=== PATIENT | female | born 1940 | race Caucasian/White ===

== ENCOUNTER 2020-07-31 07:30 | Inpatient (IN) | payer OTHER, SELFPAY ==
[2020-07-31] VITALS (23 sets, daily range): BP systolic 134–155; BP diastolic 62–82; PULSE 77–122; RESP 16–39; TEMP 36.1–37; O2SAT 92–100; BMI 34.4
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
[2020-07-31 08:11] LABS: Add Manual Diff / Slide Review NO; Basophils Absolute Auto 100 /uL (0-100); Eosinophils Absolute Auto 100 /uL (0-450); Eosinophils Percent Auto 1.1 % (2-4); Hematocrit 39.7 % (36-46); Hemoglobin 13.2 g/dL (12.0-16.0); Lymphocytes Absolute Auto 1200 /uL (1100-4500); Lymphocytes Percent Auto 17.6 % (25-40); Mean Corpuscular HGB Conc 33.2 % (30-36); Mean Corpuscular Hemoglobin 30.3 PG (26-34); Mean Corpuscular Volume 91.5 fL (80-100); Monocytes Absolute Auto 600 /uL (0-900); Monocytes Percent Auto 9.4 % (3-14); Neutrophils Absolute Auto 4700 /uL (1500-7000); Neutrophils Percent Auto 70.9 % (50-75); Platelet Count 150 X10^3/uL (150-400); Red Blood Cell Count 4.34 X10^6/uL (4.0-5.2); White Blood Cell Count 6.6 X10^3/uL (4.5-11.0)
[2020-07-31 08:17] LABS: INR 3.5 (0.9-1.3); Prothrombin Time 39.5 SECONDS (10.1-12.7)
[2020-07-31 08:20] LABS: PTT Partial Thromboplastin Tim 45 SECONDS (26.4-36.2)
[2020-07-31 08:22] LABS: Alanine Aminotransferase 26 IU/L (<35); Albumin Globulin Ratio 1.2 (1.0-2.8); Alkaline Phosphatase 93 U/L (38-126); Aspartate Aminotransferase 40 IU/L (14-36); BUN Creatinine Ratio 26.8 (6-22); Bilirubin Total 0.8 mg/dL (0.2-1.3); Blood Urea Nitrogen 26 mg/dL (7-17); Carbon Dioxide 31 mmol/L (22-32); Chloride 103 mmol/L (98-107); Estimated Glomerular Filt Rate 55.7 mL/min (>60); Globulin 3.3 g/dL (1.7-4.1); Glucose 135 mg/dL (80-110); HEMOLYSIS < 15 (0-50); Lipase 166 U/L (23-300); Potassium 3.3 mmol/L (3.4-5.1); Sodium 141 mmol/L (137-145); Total Protein 7.3 g/dL (6.3-8.2)
[2020-07-31 08:33] LABS: Troponin I < 0.012 ng/mL (0.01-0.034)
[2020-07-31] MEDS: SODIUM CHLORIDE 0.9% 1,000 ML 500 ML IV (09:30)
[2020-07-31 10:51] LABS: COVID19 -Nasal RAPID Negative (Negative)
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
[2020-07-31] MEDS: ACETAMINOPHEN 325 MG TABLET 650 MG PO ×2 (14:06→20:08)
--- NOTE | 2020-07-31 14:20 | PC.ADMIT ---
[id number] Admission Note: The patient,Cindy Hansen,79 y/o, was given written information regarding hospital policies, unit procedures and contact persons. Patient's smoking status: Former smoker. Vital Signs - 8 hr 07/31/20 07:40 07/31/20 07:45 07/31/20 08:00 Temperature 98.6 F Pulse Rate 97 H 101 H 95 H Respiratory Rate 30 H 37 H 39 H Blood Pressure 135/82 Pulse Oximetry 94 95 95 07/31/20 08:15 07/31/20 08:38 07/31/20 08:45 Temperature Pulse Rate 108 H 94 H 89 Respiratory Rate 24 30 H Blood Pressure 139/68 Pulse Oximetry 95 96 96 07/31/20 09:00 07/31/20 09:15 07/31/20 09:30 Temperature Pulse Rate 91 H 92 H 89 Respiratory Rate 29 H 30 H Blood Pressure 134/63 Pulse Oximetry 92 92 96 07/31/20 09:45 07/31/20 10:00 07/31/20 10:15 Temperature Pulse Rate 94 H 112 H 84 Respiratory Rate 26 H 31 H 33 H Blood Pressure Pulse Oximetry 99 96 99 07/31/20 10:30 07/31/20 10:45 07/31/20 11:00 Temperature Pulse Rate 86 85 81 Respiratory Rate 28 H 33 H 32 H Blood Pressure Pulse Oximetry 99 100 99 07/31/20 11:15 07/31/20 11:30 07/31/20 11:45 Temperature Pulse Rate 84 79 86 Respiratory Rate 31 H 32 H 24 Blood Pressure Pulse Oximetry 97 99 99 07/31/20 13:00 Temperature 97.8 F Pulse Rate 77 Respiratory Rate 16 Blood Pressure 155/70 H Pulse Oximetry 95 Rec'd pt from ED via w/c on RA at 1215. Pt stood and walked to bed with steady gait and no assistive device. AO x4. VSS. Reports 5/10 generalized pain mostly around the bruises. Oriented to environment, room, routine, fall risk, plan of care, pain scale, pain mgmt techniques. Instructed pt to use call light and wait for assistance before getting OOB. Provided IS to pt who requested pain less than 5 prior to using IS. She is able to provided teach back on use of IS. Provided repositioning and ice pack to help with pain reduction. Call light in easy reach.
[2020-07-31] MEDS: IBUPROFEN 600 MG TABLET PO (17:56)
[2020-07-31] MEDS: LEVALBUTEROL HFA 200 PUFF INH INH (18:08)
--- NOTE | 2020-07-31 18:13 | PC.NURSE ---
Patient sitting up in bed part of the shift. Up walking hallway couple of times this shift with daughter. Pain controlled well at the beginning of the shift with Tylenol. After 2nd walk abd pain started increasing, gave Ibuprofen at this time. Patient has been A&O, calm and cooperative. Patient resting in bed at this time.
[2020-07-31] MEDS: MONTELUKAST 10 MG TABLET PO (20:08)
[2020-07-31] MEDS: PANTOPRAZOLE 40 MG TABLET PO (20:08)
[2020-07-31] MEDS: GABAPENTIN 300 MG CAPSULE PO (20:08)
[2020-07-31] MEDS: LOVASTATIN 20 MG TABLET PO (20:08)
[2020-07-31] MEDS: FUROSEMIDE 40 MG TABLET 80 MG PO (20:09)
[2020-07-31] MEDS: DOCUSATE 100 MG CAPSULE PO (20:09)
[2020-07-31] MEDS: METOPROLOL IR 50 MG TABLET 75 MG PO (20:09)
[2020-07-31] MEDS: POTASSIUM CHLORIDE 20 MEQ TAB PO (20:09)
[2020-08-01] VITALS (8 sets, daily range): BP systolic 108–140; BP diastolic 51–63; PULSE 71–93; RESP 16–24; TEMP 35.8–36.6; O2SAT 93–100
[2020-08-01] MEDS: LEVALBUTEROL HFA 200 PUFF INH INH ×2 (00:02→11:12)
--- NOTE | 2020-08-01 00:49 | PC.NURSE ---
02 1L NC applied for desaturation. Pt. states she normally use bet. 1-2L 02 at home when asleep. Will continue to monitor and increase 02 prn.
[2020-08-01] MEDS: ACETAMINOPHEN 325 MG TABLET 650 MG PO ×4 (04:22→21:22)
[2020-08-01 04:56] LABS: Add Manual Diff / Slide Review NO; Basophils Absolute Auto 100 /uL (0-100); Basophils Percent Auto 1.4 % (0-2); Eosinophils Absolute Auto 200 /uL (0-450); Eosinophils Percent Auto 3.4 % (2-4); Hematocrit 34.4 % (36-46); Hemoglobin 11.2 g/dL (12.0-16.0); Lymphocytes Absolute Auto 1400 /uL (1100-4500); Lymphocytes Percent Auto 27.3 % (25-40); Mean Corpuscular HGB Conc 32.6 % (30-36); Mean Corpuscular Hemoglobin 29.9 PG (26-34); Mean Corpuscular Volume 91.8 fL (80-100); Monocytes Absolute Auto 600 /uL (0-900); Monocytes Percent Auto 11.2 % (3-14); Neutrophils Absolute Auto 3000 /uL (1500-7000); Neutrophils Percent Auto 56.7 % (50-75); Platelet Count 139 X10^3/uL (150-400); Red Blood Cell Count 3.75 X10^6/uL (4.0-5.2); Red Cell Distribution Width 15.6 % (11.6-14.8); White Blood Cell Count 5.2 X10^3/uL (4.5-11.0)
[2020-08-01 04:58] LABS: INR 3.6 (0.9-1.3); Prothrombin Time 41.2 SECONDS (10.1-12.7)
[2020-08-01 05:03] LABS: BUN Creatinine Ratio 20.2 (6-22); Blood Urea Nitrogen 21 mg/dL (7-17); Calcium 8.2 mg/dL (8.4-10.2); Carbon Dioxide 35 mmol/L (22-32); Chloride 103 mmol/L (98-107); Estimated Glomerular Filt Rate 51.4 mL/min (>60); Glucose 93 mg/dL (80-110); HEMOLYSIS < 15 (0-50); Potassium 3.3 mmol/L (3.4-5.1); Sodium 141 mmol/L (137-145)
[2020-08-01] MEDS: PANTOPRAZOLE 40 MG TABLET PO ×2 (06:17→21:31)
--- NOTE | 2020-08-01 08:00 | DI.RAD.S_ITS ---
PROCEDURE: XR CHEST 1V INDICATIONS: pulmonary contusion TECHNIQUE: One view of the chest was acquired. COMPARISON: [facility], CT, CT CHEST ABD PEL W CON, 07/31/2020, 8:27. [facility], CR, CHEST 2VW, 02/05/2014, 15:47. FINDINGS: Surgical changes and devices: Left chest wall single lead pacemaker redemonstrated. Lungs and pleura: A small indistinct peripheral opacity is demonstrated in the right lung base corresponding to the ground-glass opacity seen on recent CT. There is hyperinflation of the lungs with flattening of the hemidiaphragms compatible with COPD. There is mild interstitial prominence No pleural effusions or pneumothorax. Mediastinum: Mediastinal contours appear unchanged. Heart size is enlarged. Bones and chest wall: No displaced rib fracture identified. No suspicious bony lesions. Overlying soft tissues appear unremarkable. IMPRESSION: 1. Small indistinct ground-glass opacity peripherally in the right lung base corresponding to the finding on recent CT likely representing a pulmonary contusion. Finding is seen to greater advantage on the CT study. No definite increase in size. 2. No pleural effusions or pneumothorax. Dictated by: Charles Richter M.D. on 08/01/2020 at 9:10 Approved by: Charles Richter M.D. on 08/01/2020 at 9:15
[2020-08-01] MEDS: METOPROLOL IR 50 MG TABLET 75 MG PO ×2 (09:25→21:22)
[2020-08-01] MEDS: DOCUSATE 100 MG CAPSULE PO ×2 (09:25→21:23)
[2020-08-01] MEDS: FUROSEMIDE 40 MG TABLET 80 MG PO ×2 (09:26→21:23)
[2020-08-01] MEDS: POTASSIUM CHLORIDE 20 MEQ TAB 40 MEQ PO ×2 (09:26→21:23)
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
[2020-08-01] MEDS: HYDROMORPHONE 2 MG TABLET PO ×2 (15:35→21:21)
--- NOTE | 2020-08-01 17:45 | PC.NURSE ---
Evening shift note: Pt A/O x4, sitting up in bed and at bedside during shift. C/O pain administered Tylenol, pt states limited improvement with tylenol, pt refusing Ibuprofen, offered PO dilaudid 2mg, pt accepted with improvement in pain. Pt up ambulating halls, with no difficulty. No further needs at this time, bed low and locked, call light within reach, will continue to monitor.
[2020-08-01] MEDS: GABAPENTIN 300 MG CAPSULE PO (21:22)
[2020-08-01] MEDS: MONTELUKAST 10 MG TABLET PO (21:22)
[2020-08-01] MEDS: LOVASTATIN 20 MG TABLET PO (21:23)
[2020-08-02] VITALS (10 sets, daily range): BP systolic 110–124; BP diastolic 54–77; PULSE 76–110; RESP 16–20; TEMP 35.8–36.9; O2SAT 96–100
[2020-08-02] MEDS: ACETAMINOPHEN 325 MG TABLET 650 MG PO ×4 (04:47→20:59)
[2020-08-02] MEDS: HYDROMORPHONE 2 MG TABLET PO ×3 (04:48→14:15)
[2020-08-02 04:51] LABS: Add Manual Diff / Slide Review NO; Basophils Absolute Auto 100 /uL (0-100); Basophils Percent Auto 1.2 % (0-2); Eosinophils Absolute Auto 300 /uL (0-450); Eosinophils Percent Auto 3.7 % (2-4); Hematocrit 29.3 % (36-46); Hemoglobin 9.9 g/dL (12.0-16.0); Lymphocytes Absolute Auto 1500 /uL (1100-4500); Mean Corpuscular HGB Conc 33.6 % (30-36); Mean Corpuscular Hemoglobin 30.7 PG (26-34); Mean Corpuscular Volume 91.2 fL (80-100); Monocytes Absolute Auto 800 /uL (0-900); Monocytes Percent Auto 11.8 % (3-14); Neutrophils Absolute Auto 4400 /uL (1500-7000); Neutrophils Percent Auto 62.3 % (50-75); Platelet Count 131 X10^3/uL (150-400); Red Blood Cell Count 3.21 X10^6/uL (4.0-5.2)
[2020-08-02 04:54] LABS: INR 3.3 (0.9-1.3); Prothrombin Time 37.4 SECONDS (10.1-12.7)
[2020-08-02 04:59] LABS: BUN Creatinine Ratio 22.3 (6-22); Blood Urea Nitrogen 23 mg/dL (7-17); Calcium 8.2 mg/dL (8.4-10.2); Carbon Dioxide 36 mmol/L (22-32); Chloride 105 mmol/L (98-107); Glucose 106 mg/dL (80-110); HEMOLYSIS < 15 (0-50); Potassium 4.9 mmol/L (3.4-5.1); Sodium 141 mmol/L (137-145)
[2020-08-02] MEDS: PANTOPRAZOLE 40 MG TABLET PO ×2 (08:35→20:59)
[2020-08-02] MEDS: METOPROLOL IR 50 MG TABLET 75 MG PO ×2 (08:40→20:55)
[2020-08-02] MEDS: DOCUSATE 100 MG CAPSULE PO ×2 (08:41→20:59)
[2020-08-02] MEDS: POTASSIUM CHLORIDE 20 MEQ TAB PO ×2 (08:41→20:59)
[2020-08-02] MEDS: FUROSEMIDE 40 MG TABLET 80 MG PO ×2 (08:42→17:12)
[2020-08-02] MEDS: LEVALBUTEROL HFA 200 PUFF INH INH ×2 (09:04→11:09)
--- NOTE | 2020-08-02 10:19 | DI.CT.S_ITS ---
PROCEDURE: CT ABDOMEN PELVIS W CON INDICATIONS: expanding abdominal wall hematoma TECHNIQUE: After the administration of intravenous contrast, 5 mm thick sections acquired from the diaphragm to the symphysis. 5 mm coronal and sagittal reformats were acquired. For radiation dose reduction, the following was used: automated exposure control, adjustment of mA and/or kV according to patient size. COMPARISON: [facility], CT, CT CHEST ABD PEL W CON, 07/31/2020, 8:27. FINDINGS: Image quality: Excellent. ABDOMEN: Lung bases: There is a new small right pleural effusion with associated right basilar compressive atelectasis. Mild atelectasis is also demonstrated within the left lung base. Heart size is enlarged. There is a pacemaker lead extending into the right ventricle. Solid organs: Evaluation of the liver demonstrates no focal hepatic lesions. The gallbladder is surgically absent. Biliary system is non-dilated. Pancreas enhances normally. No peripancreatic fat stranding or fluid collections. No pancreatic duct dilatation. The spleen is normal in size. No adrenal nodules. Kidneys demonstrate no hydronephrosis. Bilateral renal cysts are demonstrated. Peritoneum and bowel: Bowel loops demonstrate normal wall thickness and caliber. There is colonic diverticulosis without acute diverticulitis. No free fluid or air. Nodes and vessels: No retroperitoneal or mesenteric adenopathy by size criteria. Aorta and inferior vena cava are normal in size. Miscellaneous: There are bilateral subcutaneous hematomas within the ventral abdominal wall inferiorly . These include a bilobed right lateral abdominal wall collection measuring up to approximately 9.4 x 6.8 x 6.1 cm which appears markedly increased in size compared to the prior study. There is adjacent subcutaneous edema and fat stranding. More medially within the ventral abdominal wall on the right, there is a smaller subcutaneous hematoma measuring up to 2.0 x 2.0 by 1.7 cm. On the left, a smaller collection measures approximately 4.7 x 8.4 x 5.2 cm. This also demonstrates interval increase in size compared to the prior study. Adjacent subcutaneous fat stranding and edema is also demonstrated. No definite evidence of active arterial extravasation demonstrated within the hematomas. No ventral hernias. PELVIS: Genitourinary: Bladder wall thickness is normal. Miscellaneous: No inguinal hernias or adenopathy. Bones: No suspicious bony lesions. No vertebral body compression fractures. IMPRESSION: 1. Interval increase in size of bilateral subcutaneous hematoma collections, right greater than left. No definite evidence of active arterial extravasation. 2. Otherwise, no definite acute traumatic abnormality within the abdomen or pelvis. 3. Small right pleural effusion with associated right basilar compressive atelectasis. Dictated by: Charles Richter M.D. on 08/02/2020 at 10:15 Approved by: Charles Richter M.D. on 08/02/2020 at 10:22
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
[2020-08-02] MEDS: PHYTONADIONE (VIT K1) 5 MG TABLET PO (13:35)
[2020-08-02 13:40] LABS: Add Manual Diff / Slide Review NO; Basophils Absolute Auto 100 /uL (0-100); Basophils Percent Auto 1.1 % (0-2); Eosinophils Absolute Auto 200 /uL (0-450); Eosinophils Percent Auto 2.5 % (2-4); Hematocrit 31.3 % (36-46); Hemoglobin 10.4 g/dL (12.0-16.0); Lymphocytes Absolute Auto 1300 /uL (1100-4500); Mean Corpuscular HGB Conc 33.3 % (30-36); Mean Corpuscular Hemoglobin 30.7 PG (26-34); Monocytes Absolute Auto 800 /uL (0-900); Monocytes Percent Auto 9.3 % (3-14); Neutrophils Absolute Auto 6100 /uL (1500-7000); Neutrophils Percent Auto 72.1 % (50-75); Platelet Count 147 X10^3/uL (150-400); White Blood Cell Count 8.5 X10^3/uL (4.5-11.0)
[2020-08-02 13:48] LABS: INR 2.7 (0.9-1.3); Prothrombin Time 30.6 SECONDS (10.1-12.7)
--- NOTE | 2020-08-02 13:53 | PC.NURSE ---
pt with intermittent pain to lower abd/back - ordered pain rx is effective- she remains afebrile and using IS. REPEAT CT SCAN OF ABD SHOWS HEMATOMA R>L AND INCREASED IN SIZE- ALSO, FOLLOW UP CBC SHOWS SMALL INCREASE IN LEVELS WHICH IS REASSURING TO PT- SHE DID CONSENT TO PO VIT K AND SWALLOWED SAME WITHOUT PROBLEM- AND IS AGREEABLE TO PUT ON ABD BINDER WHEN SHE NEXT GETS UP OUT OF BED FOR WALK OR BATHROOM USE
[2020-08-02] MEDS: MONTELUKAST 10 MG TABLET PO (21:01)
[2020-08-02] MEDS: GABAPENTIN 300 MG CAPSULE PO (21:01)
[2020-08-03] MEDS: ACETAMINOPHEN 325 MG TABLET 650 MG PO ×4 (03:38→20:18)
[2020-08-03 03:53] VITALS: BP 131/69; PULSE 116; RESP 22; TEMP 36.6; O2SAT 92
[2020-08-03 05:07] LABS: Add Manual Diff / Slide Review NO; Basophils Absolute Auto 100 /uL (0-100); Eosinophils Absolute Auto 100 /uL (0-450); Eosinophils Percent Auto 1.7 % (2-4); Hemoglobin 9.5 g/dL (12.0-16.0); Lymphocytes Absolute Auto 1400 /uL (1100-4500); Lymphocytes Percent Auto 16.4 % (25-40); Mean Corpuscular HGB Conc 33.7 % (30-36); Mean Corpuscular Hemoglobin 30.8 PG (26-34); Mean Corpuscular Volume 91.2 fL (80-100); Monocytes Absolute Auto 1000 /uL (0-900); Monocytes Percent Auto 11.4 % (3-14); Neutrophils Absolute Auto 6000 /uL (1500-7000); Neutrophils Percent Auto 69.5 % (50-75); Platelet Count 150 X10^3/uL (150-400); Red Blood Cell Count 3.07 X10^6/uL (4.0-5.2); White Blood Cell Count 8.6 X10^3/uL (4.5-11.0)
[2020-08-03 05:13] LABS: INR 1.9 (0.9-1.3); Prothrombin Time 21.3 SECONDS (10.1-12.7)
[2020-08-03 05:50] LABS: BUN Creatinine Ratio 23.8 (6-22); Blood Urea Nitrogen 19 mg/dL (7-17); Calcium 8.3 mg/dL (8.4-10.2); Carbon Dioxide 35 mmol/L (22-32); Chloride 100 mmol/L (98-107); Estimated Glomerular Filt Rate > 60.0 mL/min (>60); Glucose 115 mg/dL (80-110); HEMOLYSIS < 15 (0-50); Potassium 4.3 mmol/L (3.4-5.1); Sodium 137 mmol/L (137-145)
[2020-08-03] MEDS: PANTOPRAZOLE 40 MG TABLET PO ×2 (06:28→20:21)
[2020-08-03] MEDS: FUROSEMIDE 40 MG TABLET 80 MG PO ×2 (06:28→17:57)
[2020-08-03 06:54] VITALS: PULSE 93; RESP 18; O2SAT 99
[2020-08-03 07:24] VITALS: BP 117/65; PULSE 93; RESP 18; TEMP 36.8; O2SAT 96
[2020-08-03] MEDS: DOCUSATE 100 MG CAPSULE PO ×2 (09:21→20:21)
[2020-08-03] MEDS: POTASSIUM CHLORIDE 20 MEQ TAB PO ×2 (09:22→20:21)
[2020-08-03] MEDS: METOPROLOL IR 50 MG TABLET 75 MG PO ×2 (09:22→20:19)
[2020-08-03] MEDS: SODIUM CHLORIDE 0.9% FLUSH 10 ML IV ×2 (09:27→20:18)
--- NOTE | 2020-08-03 13:50 | PC.NURSE ---
pt alert/oriented and hopeful for discharge this date- she had diminihsed lung bases bilat with no need for o2 her room air spo2 had been 94-98% this shift- she has ambulated and used restroom ( denies bm at this time) showered and is taking tylenol only for her discomfort- she reports dilaudid given previously made her feel weird and anxious- bruising remains and she is wearing the abdominal binder- no evidence of increased bleeding- remains in afib rate controlled and declined to put tele monitor back on post shower- this was relayed to md and order received to dc tele - awaiting his return for her potential dc plan
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
[2020-08-03 15:25] VITALS: BP 131/63; PULSE 101; RESP 18; TEMP 35.8; O2SAT 95
[2020-08-03 19:26] VITALS: BP 141/94; PULSE 129; RESP 18; TEMP 35.6; O2SAT 95
[2020-08-03 20:09] VITALS: PULSE 106; RESP 18; O2SAT 95
[2020-08-03] MEDS: GABAPENTIN 300 MG CAPSULE PO (20:21)
[2020-08-03] MEDS: MONTELUKAST 10 MG TABLET PO (20:21)
[2020-08-03] MEDS: LOVASTATIN 20 MG TABLET PO (20:22)
[2020-08-04] VITALS: BP 129/57; PULSE 85; RESP 18; TEMP 36.4
[2020-08-04] MEDS: TRAMADOL 50 MG TABLET PO ×2 (02:35→11:39)
[2020-08-04 03:00] VITALS: BP 144/91; PULSE 93; RESP 18; TEMP 36.6; O2SAT 97
[2020-08-04 04:49] LABS: Add Manual Diff / Slide Review NO; Basophils Absolute Auto 100 /uL (0-100); Eosinophils Absolute Auto 100 /uL (0-450); Eosinophils Percent Auto 1.9 % (2-4); Hematocrit 28.3 % (36-46); Hemoglobin 9.4 g/dL (12.0-16.0); Lymphocytes Absolute Auto 1300 /uL (1100-4500); Lymphocytes Percent Auto 16.4 % (25-40); Mean Corpuscular HGB Conc 33.2 % (30-36); Mean Corpuscular Hemoglobin 30.4 PG (26-34); Mean Corpuscular Volume 91.6 fL (80-100); Monocytes Absolute Auto 1100 /uL (0-900); Monocytes Percent Auto 13.7 % (3-14); Neutrophils Absolute Auto 5400 /uL (1500-7000); Platelet Count 160 X10^3/uL (150-400); Red Cell Distribution Width 15.9 % (11.6-14.8)
[2020-08-04 04:53] LABS: BUN Creatinine Ratio 23.3 (6-22); Blood Urea Nitrogen 21 mg/dL (7-17); Calcium 8.3 mg/dL (8.4-10.2); Carbon Dioxide 36 mmol/L (22-32); Chloride 100 mmol/L (98-107); Estimated Glomerular Filt Rate > 60.0 mL/min (>60); Glucose 124 mg/dL (80-110); HEMOLYSIS < 15 (0-50); Magnesium 2.2 mg/dL (1.6-2.3); Potassium 3.9 mmol/L (3.4-5.1); Sodium 138 mmol/L (137-145)
[2020-08-04] MEDS: ACETAMINOPHEN 325 MG TABLET 650 MG PO ×2 (04:54→11:39)
[2020-08-04] MEDS: PANTOPRAZOLE 40 MG TABLET PO (06:15)
[2020-08-04] MEDS: FUROSEMIDE 40 MG TABLET 80 MG PO (06:15)
[2020-08-04 06:58] LABS: INR 1.2 (0.9-1.3); Prothrombin Time 13.4 SECONDS (10.1-12.7)
[2020-08-04] MEDS: LEVALBUTEROL HFA 200 PUFF INH INH (08:00)
[2020-08-04 08:01] VITALS: PULSE 103; RESP 16; O2SAT 95
[2020-08-04 08:05] VITALS: BP 131/56; PULSE 92; RESP 19; TEMP 36.6; O2SAT 92
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
[2020-08-04] MEDS: METOPROLOL IR 50 MG TABLET 75 MG PO (09:20)
[2020-08-04] MEDS: POTASSIUM CHLORIDE 20 MEQ TAB PO (09:20)
[2020-08-04] MEDS: DOCUSATE 100 MG CAPSULE PO (09:20)
[2020-08-04] MEDS: MULTIVIT,CALC,MINS/IRON/FOLIC 1 TABLET 1 TAB PO (09:31)
[2020-08-04] MEDS: SODIUM CHLORIDE 0.9% FLUSH 10 ML IV (09:32)
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
--- NOTE | 2020-08-04 15:57 | PC.NURSE ---
Given discharge instructions w/understanding. Awaiting transportation.
== END 2020-08-04 16:00 | disposition home or self-care (01) | DRG 206 ==
LOC: ED 10:19 → ICU 12:57 → AC 08-03 07:53 → ICU 08-03 07:54
PROVIDERS: Specialist; Admitting Provider Surgery; Emergency Provider Emergency Medicine; PCP Obstetrics & Gynecology; Referring Provider Emergency Medicine; Visit Provider Surgery
DX: S27.321A Contusion of lung, unilateral, initial encounter (principal); I48.20 Chronic atrial fibrillation, unspecified; S30.1XXA Contusion of abdominal wall, initial encounter; S20.219A Contusion of unspecified front wall of thorax, initial encounter; I48.91 Unspecified atrial fibrillation; J44.9 Chronic obstructive pulmonary disease, unspecified; S00.33XA Contusion of nose, initial encounter; V43.52XA Car driver injured in collision with other type car in traffic accident, initial encounter; Z79.01 Long term (current) use of anticoagulants; Z95.0 Presence of cardiac pacemaker; Z87.891 Personal history of nicotine dependence; Z11.59 Encounter for screening for other viral diseases
CPT/HCPCS: 36415; 70450; 71045; 71260; 74177; 80048; 80053; 81003; 83690; 83735; 84484; 85025; 85610; 85730; 86850; 86900; 86901; 87635; 87797; 93005; 94640; 94667; 94760; 94762; 96360; 96361; 97161; 99222; 99231; 99238; 99285; Q9967